=== PATIENT | female | born 2000 | race Two or more races ===

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

== ENCOUNTER 2021-12-12 16:51 | Emergency (ER) | payer BC ==
[~2021-12-12] VITALS: Ht 172.7 cm; Wt 103.9 kg
[2021-12-12 16:51] VITALS: BP 139/79
[2021-12-12] MEDS ORDERED: IBUP-1957 PO (17:19)
[2021-12-12] MEDS ORDERED: METH-647 PO (17:19)
== END 2021-12-12 17:25 | disposition home or self-care (01) ==
LOC: ER 16:53
DX: M62.838 Other muscle spasm (principal)